=== PATIENT | male | born 1990 | race Hispanic/Latino ===

== ENCOUNTER 2023-05-22 16:00 | Inpatient (IN) | payer SELFPAY ==
[2023-05-22] MEDS ORDERED: Ketorolac Tromethamine 30 MG/ML VIAL ONE (16:28)
[2023-05-22] MEDS ORDERED: Morphine 4 MG/ML VIAL ONE (16:28)
[2023-05-22] MEDS ORDERED: Pantoprazole 40 MG VIAL ONE (16:28)
[2023-05-22] MEDS ORDERED: Ondansetron PF 4 MG/2 ML Vial ONE (16:28)
[2023-05-22 17:02] LABS: #Basophils 0.1 thou/uL (0.0-0.2); #Neutrophils 12.8 thou/uL (1.40-6.50); %Basophils 0.3 % (0.0-1.0); %Eosinophils 0.2 % (0.0-10.0); %Lymphocytes 10.7 % (21.0-51.0); %Monocytes 6.6 % (0.0-10.0); %Neutrophils 81.8 % (42.0-75.0); Hemoglobin 16.6 g/dL (14.0-18.0); Mean Corpuscular HGB CONC 34.9 g/dL (32.0-36.0); Mean Corpuscular Hemoglobin 29.3 pg (27.0-31.0); Mean Corpuscular Volume 84.1 fl (78.0-98.0); Platelet Count 230 10x3/uL (130-400); RBC Distribution Width 13.2 % (11.5-14.5); Red Blood Cell (RBC) Count 5.66 mill/uL (4.70-6.10); White Blood Cell (WBC) Count 15.7 10x3/uL (4.8-10.8)
[2023-05-22 17:25] LABS: ALT (SGPT) 27 U/L (8-55); AST (SGOT) 18 U/L (5-34); Albumin 4.6 g/dL (3.5-5.0); Alkaline Phosphatase 87 U/L (40-110); Anion Gap 15 mmol/L (10-20); BUN (Urea Nitrogen) 11 mg/dL (8.9-20.6); Bilirubin, Total 0.8 mg/dL (0.2-1.2); CK (CPK) 165 U/L (30-200); Calc. Creatinine Clearance 0 mL/min (70-130); Carbon Dioxide 26 mmol/L (22-29); Chloride 102 mmol/L (98-107); Estimated GFR 113; Globulin 3.2 g/dL (2.4-3.5); Glucose 98 mg/dL (70-105); Lipase 14 U/L (8-78); Potassium 3.5 mmol/L (3.5-5.1); Protein, Total 7.8 g/dL (6.0-8.3); Sodium 139 mmol/L (136-145)
[2023-05-22] MEDS ORDERED: Piperacillin/Tazobactam 4.5 GM VIAL ONE (18:11)
[2023-05-22] MEDS ORDERED: Ketorolac Tromethamine 30 MG/ML VIAL IVP PRN (19:18)
[2023-05-22] MEDS ORDERED: traMADol HCl 50 MG TAB PO PRN (19:18)
[2023-05-22] MEDS ORDERED: Ondansetron PF 4 MG/2 ML Vial IVP PRN ×2 (19:20→20:00)
[2023-05-23] MEDS: Acetaminophen 500 MG TAB PO SCH ×4 (01:04→15:38)
[2023-05-23] MEDS: traMADol HCl 50 MG TAB PO SCH ×4 (01:04→17:38)
[2023-05-23 01:47] VITALS: BMI 31.3
[2023-05-23] MEDS ORDERED: Polyethylene Glycol 3350 17 GM Packet PO SCH (09:00)
[2023-05-23 09:17] VITALS: TEMP 98.6
[2023-05-23] MEDS ORDERED: Bupivacaine HCl 0.5%/Epinephrine 1:200,000/PF 30 ml Vial ONE (09:46)
[2023-05-23] MEDS ORDERED: Iopamidol 15 ML ONE (09:46)
[2023-05-23] MEDS ORDERED: Glucagon 1 MG/ML KIT ONE (09:46)
[2023-05-23] MEDS ORDERED: SUGAMMADEX SODIUM 200 MG/2 ML VIAL ONE (11:48)
[2023-05-23] MEDS ORDERED: Fentanyl 250 MCG/5 ML VIAL ONE (11:48)
[2023-05-23] MEDS ORDERED: Piperacillin/Tazobactam 3.375 GM VIAL ONE (12:09)
[2023-05-23] MEDS ORDERED: Sodium Chloride 0.9% 100 ML ONE (12:09)
[2023-05-23] MEDS ORDERED: ePHEDrine Sulfate 50 MG/10 ML VIAL ONE (12:27)
[2023-05-23] MEDS ORDERED: Ketorolac Tromethamine 30 MG/ML VIAL ONE (12:27)
[2023-05-23] MEDS ORDERED: Ondansetron PF 4 MG/2 ML Vial ONE (12:27)
[2023-05-23] MEDS ORDERED: NEOSTIGMINE 3 MG/3 ML SYR 3 MG/3 ML SYRINGE ONE (12:27)
[2023-05-23] MEDS ORDERED: Glycopyrrolate 0.2 MG/ML 5 ML SYRINGE ONE (12:27)
[2023-05-23] MEDS ORDERED: PHENYLEPHRINE-NS 100 MCG/ML 10 ML SYRINGE ONE (12:27)
[2023-05-23] MEDS ORDERED: Lidocaine 1% PF 5 ML VIAL ONE (12:27)
[2023-05-23] MEDS ORDERED: Rocuronium Bromide 10 MG/ML (10ML VIAL) ONE (12:27)
[2023-05-23] MEDS ORDERED: Dexamethasone 20 MG/5 ML VIAL ONE (12:27)
[2023-05-23] MEDS ORDERED: PROPOFOL 200 MG/20 ML VIAL ONE (12:27)
[2023-05-23] MEDS ORDERED: Promethazine HCl 25 MG/ML VIAL IM PRN (14:17)
[2023-05-23] MEDS ORDERED: Ondansetron HCl/PF 4 MG/2 ML Vial IVP PRN (14:17)
[2023-05-23] MEDS ORDERED: HYDROmorphone 2 MG/ML VIAL SLOW IVP PRN (14:17)
[2023-05-23 16:39] VITALS: BP 122/76
== END 2023-05-23 17:48 | disposition home or self-care (01) | DRG 419 ==
LOC: ERS 16:00 → SDC/OP 05-23 00:45 → SJJU 05-23 00:49
PROVIDERS: ADMIT Surgery; ATTEND Surgery
PROC: 0FT44ZZ Resection of Gallbladder, Percutaneous Endoscopic Approach (ICD-10-PCS; principal; 2023-05-23)
PROC: BF101ZZ Fluoroscopy of Bile Ducts using Low Osmolar Contrast (ICD-10-PCS; 2023-05-23)
DX: K80.00 Calculus of gallbladder with acute cholecystitis without obstruction (principal); K83.8 Other specified diseases of biliary tract
CPT/HCPCS: 47532; 76705; 80053; 82550; 83690; 84484; 85025; 88304; 93005; 96365; 96374; 96375; C1889; C9113; J1100; J1611; J1885; J2270; J2405; J2543; J2704; J3010; J3490; Q9967